=== PATIENT | female | born 1985 | race African-American/Black ===

== ENCOUNTER 2016-10-17 18:58 | Emergency (ER) | payer OTHER ==
[2016-10-17] MEDS ORDERED: Meclizine HCl 25 MG TAB ONE (21:23)
== END 2016-10-17 22:42 | disposition home or self-care (01) ==
LOC: ER 18:58
DX: H81.10 Benign paroxysmal vertigo, unspecified ear (principal)
CPT/HCPCS: 36415; 80053; 80307; 81001; 82947; 84703; 85025; 87088; 93005